=== PATIENT | female | born 1965 | race Caucasian/White ===

== ENCOUNTER 2016-10-26 23:35 | Emergency (ER) | payer OTHER ==
[~2016-10-26] VITALS: Ht 167.6 cm; Wt 68.0 kg
[~2016-10-26 23:35] MED LIST: ALBU0.086 INH; CEPH500C3 PO; FAMO20 PO; MEDR4PAK3 PO; PRED50 PO
[2016-10-26 23:37] VITALS: BP 173/105; PULSE 82; RESP 18; TEMP 98.5; O2SAT 98
--- NOTE | 2016-10-26 23:54 | PD ---
HPI Chief Complaint: Pain: Acute or Chronic Time Seen by Provider: 23:50 Travel History International Travel<30 days: No Contact w/Intl Traveler<30days: No Traveled to known affect area: No History of Present Illness HPI 51-year-old white female right-hand dominant presents emergency department for evaluation of a fall. She states that she had tripped and fell forward onto her hands and face this afternoon sometime after 2 PM. She is complaining of pain in both hands, left ankle and her chin. She denies syncope. No dental injury. No malocclusion. No syncope. No neck or back pain. She states the pain is moderate. Worse with movement. Some relief with elevation. Up-to- date with immunizations. PFS Past Medical History Narrative Medical aSTHMA Asthma: Yes Blood Disorders: No Heart Rhythm Problems: No Cancer: No Cardiovascular Problems: No High Cholesterol: No Chemotherapy: No Chest Pain: No Congestive Heart Failure: No COPD: No Diabetes: No Diminished Hearing: No Endocrine: No (DENIES) Gastrointestinal Disorders: Yes (HERNIA) Genitourinary: No Hypertension: No Immune Disorder: No Musculoskeletal: No Neurologic: No Psychiatric: No Reproductive: No Respiratory: Yes (ASTHMA) Radiation Therapy: No Sleep Apnea: No Thyroid Disease: No Tetanus Vaccination: < 5 Years : 0 Past Surgical History Narrative Surgical Hysterectomy Gynecologic Surgery: Yes (FIBROID MASS REMOVED) Hysterectomy: Yes Other Surgery: Yes (CYST REMOVED FROM R. WRIST) Social History Alcohol Use: No Tobacco Use: No Substance Use: No Allergies-Medications (Allergen,Severity, Reaction): Coded Allergies: Dilaudid (Verified Allergy, Unknown, 10/26/16) Reported Meds & Prescriptions Reported Meds & Active Scripts Active Diclofenac Sodium DR (Diclofenac Sodium) 50 Mg Tabdr 50 Mg PO TID Review of Systems Except as stated in HPI: all other systems reviewed are Neg Physical Exam Narrative GENERAL: Well-developed, well-nourished in no apparent distress. Nontoxic appearing. HEAD: Normocephalic, small soft tissue contusion to the chin. No bony step off.. EYES: Pupils equal round and reactive. Extraocular motions intact. No scleral icterus. No injection or drainage. ENT: Nose clear. Throat without erythema, tonsillar hypertrophy or exudate. Uvula midline. Airway patent. NECK: Trachea midline. Supple, nontender, moves head freely. No central bony tenderness or spasm. CARDIOVASCULAR: Regular rate and rhythm without murmurs, gallops, or rubs. RESPIRATORY: Clear to auscultation. Breath sounds equal bilaterally. No wheezes , rales, or rhonchi. GASTROINTESTINAL: Abdomen soft, non-tender, nondistended. No hepato-splenomegaly , or palpable masses. No guarding. EXTREMITIES: Examination of the right upper extremity reveals pain along the third, fourth, fifth metacarpals. Mild soft tissue tenderness in the fingers. The skin is intact. No pain in the wrist, elbow or shoulder. The left upper extremity reveals pain across the fingers as well as the second and third metacarpals. No pain in the wrist, elbow or shoulder. Skin is intact. Neurovascular intact. Lower extremity on the right is unremarkable. The left reveals pain in the ankle with mild swelling. No significant medial lateral malleolus tenderness. She has anterior talofibular ligament pain. No ecchymosis. The skin is intact. No pain in the Achilles or heel. No pain of the foot. Intact dorsalis pedis pulses bilaterally BACK: Nontender without deformity. No flank tenderness. NEUROLOGICAL: Awake, alert and oriented x 3 .Cranial nerves grossly intact. Motor and sensory grossly within normal limits. Normal speech. Data Data Last Documented VS Vital Signs Date Time Temp Pulse Resp B/P Pulse Ox O2 Delivery O2 Flow Rate FiO2 10/26/16 23:37 98.5 82 18 173/105 98 Orders Ankle, Complete ([id number]) (10/26/16 23:49) Hand, Complete (Moe8avv) (10/26/16 23:49) Hand, Complete ([id number]) (10/26/16 23:49) Ibuprofen (Motrin) (10/27/16 01:15) Acetamin-Hydrocod 325-5 Mg ([place] 5-325 (10/27/16 01:15) MDM Medical Decision Making Medical Screen Exam Complete: Yes Emergency Medical Condition: Yes Medical Record Reviewed: Yes Interpretation(s) Right hand: Negative for acute bony injury. Left hand: Negative for acute bony injury. Left ankle: Negative for acute bony injury. Differential Diagnosis MDM: High Differential diagnoses: Fracture, sprain, strain, dislocation, contusion, neurovascular injury Narrative Course X-rays of the left hand, right hand, and left ankle are negative for bony injury. Patient given one Lortab 5 a grams by mouth and Motrin 800 mg by mouth. Addi wrap. This is bilateral hand contusions, ankle sprain Diagnosis Primary Impression: bilateral hand contusions Additional Impression: Left ankle sprain Qualified Code: S93.422A - Sprain of deltoid ligament of left ankle, initial encounter Patient Instructions: General Instructions Departure Forms: Tests/Procedures, Work Release Special Instructions: No work 3 days. Additional Instructions: Rest. Elevation. Ice packs for the next 3 days. Addi wrap. Medications as directed Follow-up with an orthopedist or your doctor in one week. Return to the ER if any problems Med/Other Pt SpecificInfo: Prescription(s) given Scripts Diclofenac Sodium DR 50 Mg Tabdr50 Mg PO TID #30 TAB Prov:Sarthak Honeycutt MD 10/27/16 Disposition: 01 DISCHARGE HOME Condition: Stable Juan Kumar Oct 26, 2016 23:54
--- NOTE | 2016-10-27 00:33 | RADRPT ---
EXAM DATE/TIME: 10/27/2016 00:13 [facility] COMPARISON: No previous studies available for comparison. INDICATIONS : Pt tripped and fell tonight. Swelling and pain to bilateral hands and left ankle. MEDICAL HISTORY : None. SURGICAL HISTORY : None. ENCOUNTER: Initial ACUITY: 1 day PAIN SCORE: 8/10 LOCATION: Left ankle FINDINGS: Three view exam was performed of the left ankle. The bony structures are in normal alignment. No ev idence of fracture, dislocation, or soft tissue swelling. The ankle mortise is intact. No radiopaqu e foreign bodies are seen. Bony mineralization is normal. CONCLUSION: No acute disease. Edgar Pollard MD on October 27, 2016 at 0:32 Board Certified Radiologist. This report was verified electronically.
--- NOTE | 2016-10-27 00:34 | RADRPT ---
EXAM DATE/TIME: 10/27/2016 00:15 [facility] COMPARISON: HAND LEFT COMPLETE ([id number]), September 30, 2013, 9:21. INDICATIONS : Pt tripped and fell tonight. Swelling and pain to bilateral hands and left ankle. MEDICAL HISTORY : None. SURGICAL HISTORY : None. ENCOUNTER: Initial ACUITY: 1 day PAIN SCORE: 8/10 LOCATION: Left hand FINDINGS: There is osteoarthritis greatest at the fifth DIP joint. No fracture or dislocation. Normal bone dens ity. CONCLUSION: No acute disease. Edgar Pollard MD on October 27, 2016 at 0:32 Board Certified Radiologist. This report was verified electronically.
--- NOTE | 2016-10-27 00:35 | RADRPT ---
EXAM DATE/TIME: 10/27/2016 00:16 [facility] COMPARISON: HAND LEFT COMPLETE ([id number]), October 27, 2016, 0:15. INDICATIONS : Pt tripped and fell tonight. Swelling and pain to bilateral hands and left ankle. MEDICAL HISTORY : None. SURGICAL HISTORY : None. ENCOUNTER: Initial ACUITY: 1 day PAIN SCORE: 8/10 LOCATION: Right hand FINDINGS: There is mild osteoarthritis and normal bone density. No fracture or dislocation. CONCLUSION: No acute disease. Edgar Pollard MD on October 27, 2016 at 0:33 Board Certified Radiologist. This report was verified electronically.
[2016-10-27] MEDS ORDERED: ACETAMINOPHEN/HYDROcodone 325 MG/5 MG TAB PO ONE (01:15)
[2016-10-27] MEDS ORDERED: DICL50TA3 PO (01:15)
[2016-10-27] MEDS ORDERED: IBUPROFEN 800 MG TAB PO ONE (01:15)
[2016-12-17] MEDS ORDERED: RANI150C PO (10:18)
[2016-12-17] MEDS ORDERED: VENTAER INH (10:21)
[2017-01-22] MEDS ORDERED: IBUP800T23 PO (08:54)
[2017-01-22] MEDS ORDERED: RANI150T PO (08:54)
[2017-01-22] MEDS ORDERED: HYDR12.56 PO (08:54)
[2017-01-22] MEDS ORDERED: NYST15T TOPICAL (08:55)
== END 2016-10-27 01:59 | disposition home or self-care (01) ==
LOC: NEPB 23:47
DX: S93.422A Sprain of deltoid ligament of left ankle, initial encounter (principal); S60.222A Contusion of left hand, initial encounter; S60.221A Contusion of right hand, initial encounter; S00.83XA Contusion of other part of head, initial encounter; W01.0XXA Fall on same level from slipping, tripping and stumbling without subsequent striking against object, initial encounter
CPT/HCPCS: 73130; 73610; 99283

== ENCOUNTER 2016-11-04 17:43 | Emergency (ER) | payer OTHER ==
[~2016-11-04 17:43] MED LIST changes: -ALBU0.086 INH; -CEPH500C3 PO; +DICL50TA3 PO; -FAMO20 PO; -MEDR4PAK3 PO; -PRED50 PO
[2016-11-04 17:50] VITALS: BP 138/72; PULSE 80; RESP 18; TEMP 98.6; O2SAT 97
--- NOTE | 2016-11-04 17:54 | PD ---
HPI Chief Complaint: Abdominal Pain Time Seen by Provider: 17:53 Travel History International Travel<30 days: No Contact w/Intl Traveler<30days: No Traveled to known affect area: No History of Present Illness HPI 51-year-old female came to the emergency room with history of left lower quadrant abdominal pain that started last night. Patient says that the pain has progressively worsened. She is nauseous today with no vomiting though. She called 911 and was brought in by EMS. No history of fever or chills. Patient has history of diverticulitis in the past. She describes the pain to be sharp and localized to the left lower quadrant. It's not radiating. Movement or pushing on it makes the pain worse. PFSH Past Medical History Narrative Medical List of her past medical history as reviewed from the nursing note. Asthma: Yes Blood Disorders: No Heart Rhythm Problems: No Cancer: No Cardiovascular Problems: No High Cholesterol: No Chemotherapy: No Chest Pain: No Congestive Heart Failure: No COPD: No Diabetes: No Diminished Hearing: No Gastrointestinal Disorders: Yes (HERNIA) Genitourinary: No Immune Disorder: No Musculoskeletal: No Neurologic: No Psychiatric: No Reproductive: No Respiratory: Yes (ASTHMA) Radiation Therapy: No Sleep Apnea: No Thyroid Disease: No ?: Not : 0 Past Surgical History Gynecologic Surgery: Yes (FIBROID MASS REMOVED) Hysterectomy: Yes Other Surgery: Yes (CYST REMOVED FROM R. WRIST) Social History Alcohol Use: No Tobacco Use: No Substance Use: No Allergies-Medications (Allergen,Severity, Reaction): Coded Allergies: Dilaudid (Verified Allergy, Unknown, 11/04/16) Comments List of her allergies reviewed from the nursing note. Reported Meds & Prescriptions Reported Meds & Active Scripts Active Flagyl (Metronidazole) 250 Mg Tab 250 Mg PO TID 10 Days Ciprofloxacin (Ciprofloxacin HCl) 500 Mg Tab 500 Mg PO BID 10 Days Narrative Medication List of her home medications reviewed from the nursing note. Review of Systems Except as stated in HPI: all other systems reviewed are Neg Physical Exam Narrative GENERAL: Awake, alert, obese, moderate distress SKIN: Warm and dry. HEAD: Atraumatic. Normocephalic. EYES: Pupils equal and round. No scleral icterus. No injection or drainage. ENT: No nasal bleeding or discharge. Mucous membranes pink and moist. NECK: Trachea midline. No JVD. CARDIOVASCULAR: Regular rate and rhythm. No murmur appreciated. RESPIRATORY: No accessory muscle use. Clear to auscultation. Breath sounds equal bilaterally. GASTROINTESTINAL: Left lower quadrant tenderness and guarding, decreased bowel sounds. Hepatic and splenic margins not palpable. MUSCULOSKELETAL: No obvious deformities. No clubbing. No cyanosis. No edema. NEUROLOGICAL: Awake and alert. No obvious cranial nerve deficits. Motor grossly within normal limits. Normal speech. PSYCHIATRIC: Appropriate mood and affect; insight and judgment normal. Data Data Last Documented VS Vital Signs Date Time Temp Pulse Resp B/P Pulse Ox O2 Delivery O2 Flow Rate FiO2 11/04/16 20:46 84 18 128/72 99 Room Air 11/04/16 17:50 98.6 Orders Complete Blood Count With Diff (11/04/16 18:01) Comprehensive Metabolic Panel (11/04/16 18:01) Lipase (11/04/16 18:01) Urinalysis - C+S If Indicated (11/04/16 18:01) Ct Abd/Pel W/O Iv Contrast (11/04/16 18:01) Iv Access Insert/Monitor (11/04/16 18:01) Ecg Monitoring (11/04/16 18:01) Oximetry (11/04/16 18:01) Morphine Inj (Morphine Inj) (11/04/16 18:15) Ondansetron Inj (Zofran Inj) (11/04/16 18:15) Sodium Chlor 0.9% 1000 Ml Inj (Ns 1000 M (11/04/16 18:01) Sodium Chloride 0.9% Flush (Ns Flush) (11/04/16 18:15) Blood Culture (11/04/16 18:45) Ciprofloxacin 400 Mg Premix (Cipro 400 M (11/04/16 18:45) Metronidazole 500 Mg Inj (Flagyl 500 Mg (11/04/16 18:45) Labs Laboratory Tests Test 11/04/16 11/04/16 18:13 19:11 White Blood Count 9.8 TH/MM3 Red Blood Count 4.43 MIL/MM3 Hemoglobin 13.6 GM/DL Hematocrit 40.1 % Mean Corpuscular Volume 90.6 FL Mean Corpuscular Hemoglobin 30.7 PG Mean Corpuscular Hemoglobin 33.8 % Concent Red Cell Distribution Width 13.0 % Platelet Count 234 TH/MM3 Mean Platelet Volume 8.3 FL Neutrophils (%) (Auto) 73.8 % Lymphocytes (%) (Auto) 18.4 % Monocytes (%) (Auto) 5.6 % Eosinophils (%) (Auto) 1.5 % Basophils (%) (Auto) 0.7 % Neutrophils # (Auto) 7.2 TH/MM3 Lymphocytes # (Auto) 1.8 TH/MM3 Monocytes # (Auto) 0.5 TH/MM3 Eosinophils # (Auto) 0.1 TH/MM3 Basophils # (Auto) 0.1 TH/MM3 CBC Comment DIFF FINAL Differential Comment Sodium Level 138 MEQ/L Potassium Level 3.8 MEQ/L Chloride Level 102 MEQ/L Carbon Dioxide Level 25.0 MEQ/L Anion Gap 11 MEQ/L Blood Urea Nitrogen 10 MG/DL Creatinine 0.77 MG/DL Estimat Glomerular Filtration 79 ML/MIN Rate Random Glucose 97 MG/DL Calcium Level 9.4 MG/DL Total Bilirubin 0.9 MG/DL Aspartate Amino Transf 14 U/L (AST/SGOT) Alanine Aminotransferase 28 U/L (ALT/SGPT) Alkaline Phosphatase 89 U/L Total Protein 8.3 GM/DL Albumin 4.1 GM/DL Lipase 87 U/L Urine Color YELLOW Urine Turbidity CLEAR Urine pH 8.0 Urine Specific [place] 1.011 Urine Protein NEG mg/dL Urine Glucose (UA) NEG mg/dL Urine Ketones 10 mg/dL Urine Occult Blood NEG Urine Nitrite NEG Urine Bilirubin NEG Urine Urobilinogen LESS THAN 2.0 MG/DL Urine Leukocyte Esterase NEG Urine WBC 1 /hpf Microscopic Urinalysis Comment CULT NOT INDICATED MDM Medical Decision Making Medical Screen Exam Complete: Yes Emergency Medical Condition: Yes Medical Record Reviewed: Yes Differential Diagnosis Acute diverticulitis, diverticular abscess Narrative Course 6:18 PM awaiting for the blood test results and the CAT scan to be done and resulted. I've medicated her for pain and nausea. Patient is getting IV fluid bolus. 7:12 PM CAT scan result is back and shows diverticulitis without abscess. Blood test results are back and looks to be within normal limit. Patient is getting a dose of IV antibiotic and will be discharged home. Procedures EKG Prior to Arrival: No Diagnosis Primary Impression: Acute diverticulitis Referrals: Primary Care Physician 2 days Additional Instructions: Please return to the ER if the condition worsens or any other new concerns. Otherwise follow-up with your primary care. Take the medications as per the prescription direction. Clear liquid diet for next 48 hours. Med/Other Pt SpecificInfo: Prescription(s) given Scripts Metronidazole (Flagyl)250 Mg [id number] Mg PO TID 10 Days Ref 0 Prov:Eliana Naik MD 11/04/16 Ciprofloxacin 500 Mg [id number] Mg PO BID 10 Days Ref 0 Prov:Eliana Naik MD 11/04/16 Disposition: 01 DISCHARGE HOME Condition: Stable Eliana Naik MD Nov 04, 2016 17:54
[2016-11-04] MEDS ORDERED: SODIUM CHLOR 0.9% 1000 ML INJ 1,000 ML IV SCH (18:01)
[2016-11-04] MEDS ORDERED: ONDANSETRON HCL 4 MG/2 ML VIAL IVP ONE (18:15)
[2016-11-04] MEDS ORDERED: MORPHINE SULFATE 4 MG/ML INJ IV PUSH ONE (18:15)
[2016-11-04] MEDS ORDERED: SODIUM CHLORIDE 0.9% FLUSH 5 ML FLUSH IVF PRN (18:15)
[2016-11-04 18:16] VITALS: O2SAT 97
[2016-11-04 18:35] LABS: AUTOMATED NEUTROPHIL # 7.2 TH/MM3 (1.8-7.7); BASOPHIL # 0.1 TH/MM3 (0-0.2); BASOPHIL % 0.7 % (0.0-2.0); EOSINOPHIL # 0.1 TH/MM3 (0-0.4); EOSINOPHIL % 1.5 % (0.0-4.0); HEMATOCRIT 40.1 % (35.0-46.0); LYMPH % 18.4 % (9.0-44.0); LYMPHOCYTE # 1.8 TH/MM3 (1.0-4.8); MEAN CELL VOLUME 90.6 FL (80.0-100.0); MEAN CORPUSCULAR HEMOGLOBIN 30.7 PG (27.0-34.0); MEAN CORPUSCULAR HGB CONC 33.8 % (32.0-36.0); MONO % 5.6 % (0.0-8.0); NEUT % 73.8 % (16.0-70.0); PLATELET COUNT 234 TH/MM3 (150-450); RED BLOOD COUNT 4.43 MIL/MM3 (4.00-5.30); WHITE BLOOD COUNT 9.8 TH/MM3 (4.0-11.0)
--- NOTE | 2016-11-04 18:42 | RADRPT ---
EXAM DATE/TIME: 11/04/2016 18:15 [facility] COMPARISON: No previous studies available for comparison. INDICATIONS : Lower left abdominal pain. ORAL CONTRAST: No oral contrast ingested. RADIATION DOSE: 12.64 CTDIvol (mGy) MEDICAL HISTORY : Hypertension. SURGICAL HISTORY : Hysterectomy. ENCOUNTER: Initial ACUITY: 2 days PAIN SCALE: 6/10 LOCATION: Left lower quadrant TECHNIQUE: Volumetric scanning of the abdomen and pelvis was performed. Using automated exposure control and ad justment of the mA and/or kV according to patient size, radiation dose was kept as low as reasonably achievable to obtain optimal diagnostic quality images. FINDINGS: There is mural thickening in the proximal sigmoid colon associated with diverticula and perisigmoid f at stranding characteristic of mild diverticulitis. There is no abscess, obstruction, free fluid or f ree air. Appendix is normal. Lung bases are clear. No acute findings in the liver, spleen, adrenals, kidneys or pancreas. No calci fied gallstones or biliary ductal dilatation. No acute bony abnormality. CONCLUSION: 1. Proximal sigmoid diverticulitis without abscess, obstruction, free fluid or free air. Juan Ford MD on November 04, 2016 at 18:36 Board Certified Radiologist. This report was verified electronically.
[2016-11-04 18:44] LABS: HEMO FLAGS DIFF FINAL
[2016-11-04] MEDS ORDERED: CIPROFLOXACIN 400 MG PREMIX 200 ML IV ONE (18:45)
[2016-11-04] MEDS ORDERED: metroNIDAZOLE 500 MG INJ 100 ML IV ONE (18:45)
[2016-11-04 18:56] LABS: ANION GAP 11 MEQ/L (5-15); AST (GOT) 14 U/L (15-37); BLOOD UREA NITROGEN 10 MG/DL (7-18); CHLORIDE 102 MEQ/L (98-107); GLOMERULAR FILTRATION RATE 79 ML/MIN (>89); POTASSIUM 3.8 MEQ/L (3.5-5.1); SODIUM (NA) 138 MEQ/L (136-145)
[2016-11-04 19:00] LABS: ALKALINE PHOSPHATASE 89 U/L (45-117); ALT (GPT) 28 U/L (10-53); TOTAL BILIRUBIN ADULT 0.9 MG/DL (0.2-1.0)
[2016-11-04] MEDS ORDERED: CIPR500T2 PO (19:13)
[2016-11-04] MEDS ORDERED: METR250 PO (19:13)
[2016-11-04 20:46] VITALS: BP 128/72; PULSE 84; RESP 18; O2SAT 99
[2016-11-04 21:10] LABS: BLOOD, URINE NEG (NEG); GLUCOSE,URINE NEG (NEG); KETONE, URINE 10 mg/dL (NEG); NITRITE,URINE NEG (NEG); URINE COLOR YELLOW (YELLW/STRAW)
[2016-11-04 21:11] LABS: COMMENT (UR) CULT NOT INDICATED; CULTURE IF INDICATED CULT NOT INDICATED
[2016-12-17] MEDS ORDERED: RANI150C PO (10:18)
[2016-12-17] MEDS ORDERED: VENTAER INH (10:21)
[2017-01-22] MEDS ORDERED: IBUP800T23 PO (08:54)
[2017-01-22] MEDS ORDERED: HYDR12.56 PO (08:54)
[2017-01-22] MEDS ORDERED: RANI150T PO (08:54)
[2017-01-22] MEDS ORDERED: NYST15T TOPICAL (08:55)
== END 2016-11-04 23:00 | disposition home or self-care (01) ==
LOC: NEPE 17:43 → NEDAMB 23:00
DX: K57.92 Diverticulitis of intestine, part unspecified, without perforation or abscess without bleeding (principal); R11.0 Nausea; J45.909 Unspecified asthma, uncomplicated
CPT/HCPCS: 74176; 80053; 81001; 83690; 85025; 86403; 87040; 87205; 96361; 96374; 96375; 99284; J0744; J2270; J2405; J7030

== ENCOUNTER 2016-11-20 23:10 | Emergency (ER) | payer OTHER ==
[~2016-11-20] VITALS: Ht 162.6 cm; Wt 68.0 kg
[~2016-11-20 23:10] MED LIST changes: +CIPR500T2 PO; -DICL50TA3 PO; +METR250 PO
[2016-11-20 23:11] VITALS: BP 146/100; PULSE 92; RESP 18; TEMP 97.9; O2SAT 97
[2016-11-20 23:26] VITALS: BP 144/95
[2016-11-20] MEDS ORDERED: ALBU0.08 NEB (23:43)
[2016-11-20] MEDS ORDERED: DOXY100C PO (23:43)
[2016-11-20] MEDS ORDERED: PRED-503 PO (23:43)
[2016-11-20] MEDS ORDERED: DOXYCYCLINE HYCLATE 100 MG CAP PO ONE (23:45)
[2016-11-20] MEDS ORDERED: predniSONE 20 MG TAB PO ONE (23:45)
--- NOTE | 2016-11-20 23:49 | PD ---
HPI Chief Complaint: Cold / Flu Symptoms Time Seen by Provider: 23:44 Travel History International Travel<30 days: No Contact w/Intl Traveler<30days: No Traveled to known affect area: No History of Present Illness HPI 51-year-old white female presents with a four-day history of cough and congestion. She states that she coughs so hard she vomits. She has pleuritic chest wall pain. Positive subjective fever, productive sputum, posttussive emesis and general malaise. She denies any nausea or vomiting otherwise. No abdominal pain or diarrhea. No dysuria or frequency. PFSH Past Medical History Asthma: Yes Blood Disorders: No Heart Rhythm Problems: No Cancer: No Cardiovascular Problems: No High Cholesterol: No Chemotherapy: No Chest Pain: No Congestive Heart Failure: No COPD: No Diabetes: No Diminished Hearing: No Gastrointestinal Disorders: Yes (HERNIA) Genitourinary: No Immune Disorder: No Musculoskeletal: No Neurologic: No Psychiatric: No Reproductive: No Respiratory: Yes (ASTHMA) Radiation Therapy: No Sleep Apnea: No Thyroid Disease: No ?: Not : 0 Past Surgical History Gynecologic Surgery: Yes (FIBROID MASS REMOVED) Hysterectomy: Yes Other Surgery: Yes (CYST REMOVED FROM R. WRIST) Social History Alcohol Use: No Tobacco Use: No Substance Use: No Allergies-Medications (Allergen,Severity, Reaction): Coded Allergies: Dilaudid (Verified Allergy, Unknown, 11/20/16) Reported Meds & Prescriptions Reported Meds & Active Scripts Active Albuterol Neb (Albuterol Sulfate) 2.5 Mg/3 Ml Neb 2.5 Mg NEB Q4HR NEB While awake Deltasone (Prednisone) 20 Mg Tab 20 Mg PO BID Doxycycline Hyclate 100 Mg Cap 100 Mg PO BID Flagyl (Metronidazole) 250 Mg Tab 250 Mg PO TID 10 Days Ciprofloxacin (Ciprofloxacin HCl) 500 Mg Tab 500 Mg PO BID 10 Days Review of Systems Except as stated in HPI: all other systems reviewed are Neg Physical Exam Narrative GENERAL: Well-developed, well-nourished in no acute distress. Nontoxic appearing. HEAD: Normocephalic, atraumatic. EYES: Pupils equal round and reactive. Extraocular motions intact. No scleral icterus. No injection or drainage. ENT: TMs clear without erythema. The external auditory canals clear. Nose: clear . Posterior pharynx is pink and moist. No tonsillar edema or exudate. Uvula midline. Airway patent. NECK: Trachea midline.Supple, nontender, moves head freely. No central bony tenderness or spasm. CARDIOVASCULAR: Regular rate and rhythm without murmurs, gallops, or rubs. RESPIRATORY: Scattered rhonchi with a few fine extremely wheeze. No Rales. GASTROINTESTINAL: Abdomen soft, non-tender, nondistended. No hepato-splenomegaly , or palpable masses. No guarding. EXTREMITIES: No clubbing, cyanosis, or edema. No joint tenderness, effusion, or edema noted. BACK: Nontender without deformity or crepitance. No flank tenderness. Data Data Last Documented VS Vital Signs Date Time Temp Pulse Resp B/P Pulse Ox O2 Delivery O2 Flow Rate FiO2 11/20/16 23:26 144/95 11/20/16 23:11 97.9 92 18 97 Room Air Orders Prednisone (Deltasone) (11/20/16 23:45) Doxycycline (Vibramycin) (11/20/16 23:45) MDM Medical Decision Making Medical Screen Exam Complete: Yes Emergency Medical Condition: Yes Medical Record Reviewed: Yes Differential Diagnosis MDM: High Differential diagnoses: Pneumonia, bronchitis, URI, asthma, RAD, legionnaire's disease, SARS, ARDS, influenza, bronchiolitis, RSV,PE,CHF Narrative Course Patient's given 40 mg of prednisone by mouth, doxycycline 100 mg by mouth. This is asthmatic bronchitis Diagnosis Primary Impression: Asthmatic bronchitis Qualified Code: J45.20 - Asthmatic bronchitis, mild intermittent, uncomplicated Patient Instructions: General Instructions Additional Instructions: Rest. Increase fluids. Tylenol and Advil. Robitussin-DM. Doxycycline, prednisone, and albuterol. Followup with your DrArias in one week. Return to the ER for any problems. Med/Other Pt SpecificInfo: Prescription(s) given Scripts Albuterol Neb 2.5 Mg/3 Ml Neb2.5 Mg NEB Q4HR NEB #60 NEBULE While awake Prov:Forest Friedman MD 11/20/16 Prednisone (Deltasone)20 Mg Tab20 Mg PO BID #10 TAB Prov:Forest Friedman MD 11/20/16 Doxycycline Hyclate 100 Mg [id number] Mg PO BID #14 CAP Prov:Forest Friedman MD 11/20/16 Disposition: 01 DISCHARGE HOME Condition: Stable Juan Kumar Nov 20, 2016 23:49
[2016-12-17] MEDS ORDERED: RANI150C PO (10:18)
[2016-12-17] MEDS ORDERED: VENTAER INH (10:21)
[2017-01-22] MEDS ORDERED: IBUP800T23 PO (08:54)
[2017-01-22] MEDS ORDERED: HYDR12.56 PO (08:54)
[2017-01-22] MEDS ORDERED: RANI150T PO (08:54)
[2017-01-22] MEDS ORDERED: NYST15T TOPICAL (08:55)
== END 2016-11-21 00:07 | disposition home or self-care (01) ==
LOC: NEPB 23:10
DX: J45.20 Mild intermittent asthma, uncomplicated (principal)
CPT/HCPCS: 99283; J7512

== ENCOUNTER 2017-01-16 11:02 | Emergency (ER) | payer OTHER ==
[~2017-01-16] VITALS: Ht 162.6 cm; Wt 66.0 kg
[~2017-01-16 11:02] MED LIST changes: -HYDR12.56 PO; -IBUP800T23 PO; -NYST15T TOPICAL; -RANI150T PO
[2017-01-16 11:04] VITALS: BP 161/91; PULSE 89; RESP 15; TEMP 97.9; O2SAT 98
--- NOTE | 2017-01-16 11:11 | PD ---
Physical Exam Time Seen by Provider: 11:08 Narrative 52 yo F w/ c/o left foot injury one week ago and chronic low pain [id number]. Denies new or recent injury. Patient stable. Patient see in triage. Awaiting bed placement. Data Data Last Documented VS Vital Signs Date Time Temp Pulse Resp B/P Pulse Ox O2 Delivery O2 Flow Rate FiO2 01/16/17 11:04 97.9 89 15 161/91 98 MDM Supervised Visit with DWIGHT: Kitty Conklin Jan 16, 2017 11:11
--- NOTE | 2017-01-16 11:25 | PD ---
HPI . chronic back pain and foot pain for 1 week Chief Complaint: Pain: Acute or Chronic Time Seen by Provider: 11:20 Travel History International Travel<30 days: No Contact w/Intl Traveler<30days: No Traveled to known affect area: No History of Present Illness HPI 52 yr old female well known to me from the community clinic here with c/o left foot pain for over 1 week. She reports dropping a box on her foot about 1 week ago and has had pain ever since. She is ambulatory. She reports pain in the top of her foot. She also reports some pain in her back that has been ongoing for quite some time. She denies any recent injury. She tells me she has an appointment at the community clinic but not until next week and she went there and was told to come to the ED because there were no appointments. No bowel or bladder dysfunction. No saddle anesthesia. PFSH Past Medical History Asthma: Yes Blood Disorders: No Heart Rhythm Problems: No Cancer: No Cardiovascular Problems: No High Cholesterol: No Chemotherapy: No Chest Pain: No Congestive Heart Failure: No COPD: No Diabetes: No Diminished Hearing: No Gastrointestinal Disorders: Yes (HERNIA) Genitourinary: No Immune Disorder: No Musculoskeletal: No Neurologic: No Psychiatric: No Reproductive: No Respiratory: Yes (ASTHMA) Radiation Therapy: No Sleep Apnea: No Thyroid Disease: No ?: Not : 0 Past Surgical History Gynecologic Surgery: Yes (FIBROID MASS REMOVED) Hysterectomy: Yes Other Surgery: Yes (CYST REMOVED FROM R. WRIST) Social History Alcohol Use: No Tobacco Use: No Substance Use: No Allergies-Medications (Allergen,Severity, Reaction): Coded Allergies: Dilaudid (Verified Allergy, Unknown, 01/16/17) Reported Meds & Prescriptions Reported Meds & Active Scripts Active Ventolin Hfa 18 GM Inh (Albuterol Sulfate) 90 Mcg/Act Aer 1 Puff INH Q4H PRN Ranitidine (Ranitidine HCl) 150 Mg Cap 150 Mg PO DAILY Albuterol Neb (Albuterol Sulfate) 2.5 Mg/3 Ml Neb 2.5 Mg NEB Q4HR NEB While awake Review of Systems General / Constitutional: No: Fever Eyes: No: Visual changes HENT: No: Headaches Cardiovascular: No: Chest Pain or Discomfort Respiratory: No: Shortness of Breath Gastrointestinal: No: Abdominal Pain Genitourinary: No: Dysuria Musculoskeletal: Positive: Pain (left foot and back ) Skin: No Rash Neurologic: No: Weakness Psychiatric: No: Depression Endocrine: No: Polydipsia Hematologic/Lymphatic: No: Easy Bruising Physical Exam Narrative GENERAL: AAO x 3, no acute distress, Well-nourished, well-developed patient. SKIN: Warm and dry. No visible rashes or bruising. HEAD: Normocephalic and atraumatic. EYES: No scleral icterus. No injection or drainage. EOM intact, PERRLA ENT: No nasal drainage noted. Mucous membranes pink. Airway patent. NECK: Supple, trachea midline. No JVD. CARDIOVASCULAR: Regular rate and rhythm without murmurs, gallops, or rubs. RESPIRATORY: Breath sounds equal bilaterally. No accessory muscle use. No rhonchi or rales. GASTROINTESTINAL: Abdomen soft, non-tender, nondistended. EXTREMITIES: No cyanosis or edema. Feet normal inspection.Pulses normal. no ecchymosis, or deformity. Toes move. Tenderness over the navicular and cuneiform bones. BACK: Nontender without obvious deformity. No CVA tenderness. No spinal tenderness. mild paraspinal tenderness. PSYCH: AAO x 3, normal affect. Data Data Last Documented VS Vital Signs Date Time Temp Pulse Resp B/P Pulse Ox O2 Delivery O2 Flow Rate FiO2 01/16/17 11:04 97.9 89 15 161/91 98 MDM Medical Decision Making Medical Screen Exam Complete: Yes Emergency Medical Condition: No Medical Record Reviewed: Yes Differential Diagnosis acute on chronic back pain, foot pain, foot fracture Narrative Course 52 yr old female well known to me from the community clinic here with c/o left foot pain for over 1 week. She reports dropping a box on her foot about 1 week ago and has had pain ever since. She is ambulatory. She reports pain in the top of her foot. She also reports some pain in her back that has been ongoing for quite some time. She denies any recent injury. She tells me she has an appointment at the community health clinic but not until next week and she went there and was told to come to the ED because there were no appointments. No bowel or bladder dysfunction. No saddle anesthesia. I personally called the community health clinic and they will see the patient now. She is being escorted there by a financial counselor for treatment. I discussed with patient. A medical screening exam was performed: At the time of evaluation the presenting medical condition was determined not to be of an emergent nature. The patient was given the option of receiving additional care, but declined. Patient was given options for additional community resources from which to obtain care. The Patient Has Been advised to seek medical attention for their presenting complaint. The patient has been advised to return to the ER at any time if an emergent condition develops. Diagnosis Primary Impression: Encounter for medical screening examination Condition: Stable Sarah Cuellar Jan 16, 2017 11:24
[2017-01-16] MEDS ORDERED: IBUP800T23 PO (12:14)
[2017-01-22] MEDS ORDERED: HYDR12.56 PO (08:54)
[2017-01-22] MEDS ORDERED: RANI150T PO (08:54)
[2017-01-22] MEDS ORDERED: IBUP800T23 PO (08:54)
[2017-01-22] MEDS ORDERED: NYST15T TOPICAL (08:55)
== END 2017-01-16 11:49 | disposition left against medical advice (07) ==
LOC: NEPK 11:02
DX: M79.672 Pain in left foot (principal)
CPT/HCPCS: 99281

== ENCOUNTER → 2017-01-16 | Outpatient (CLI) | payer OTHER ==
[~2017-01-16] MED LIST changes: +ALBU0.08 NEB; -CIPR500T2 PO; +HYDR12.56 PO; +IBUP800T23 PO; -METR250 PO; +NYST15T TOPICAL; +RANI150C PO; +RANI150T PO; +VENTAER INH
--- NOTE | 2017-01-16 13:15 | RADRPT ---
EXAM DATE/TIME: 01/16/2017 12:53 [facility] COMPARISON: No previous studies available for comparison. INDICATIONS : Left foot pain, metatarsals. Box of metal beads fell on foot 1 weeks ago. MEDICAL HISTORY : None. SURGICAL HISTORY : None. ENCOUNTER: Initial ACUITY: 1 week PAIN SCORE: 10/10 LOCATION: Left foot FINDINGS: No definite fractures, or dislocations are identified. No definite lytic or sclerotic lesion is seen . There are degenerative changes within multiple joints mainly the interphalangeal joints with slight hypertrophic changes involving the second proximal phalanx chronic in nature. CONCLUSION: Chronic changes and no evidence for acute fracture. Noel Pleitez MD on January 16, 2017 at 13:12 Board Certified Radiologist. This report was verified electronically.
== END ==
LOC: HRAD 12:38
PROVIDERS: ATTEND Nurse Practitioner Family
DX: S99.922A Unspecified injury of left foot, initial encounter (principal); X58.XXXA Exposure to other specified factors, initial encounter
CPT/HCPCS: 73630

== ENCOUNTER → 2017-01-16 | Outpatient (CLI) | payer OTHER ==
[2017-01-16 11:10] LABS: AUTOMATED NEUTROPHIL # 1.9 TH/MM3 (1.8-7.7); BASOPHIL % 0.9 % (0.0-2.0); EOSINOPHIL # 0.1 TH/MM3 (0-0.4); EOSINOPHIL % 3.3 % (0.0-4.0); HEMATOCRIT 40.8 % (35.0-46.0); HEMO FLAGS DIFF FINAL; LYMPH % 33.4 % (9.0-44.0); LYMPHOCYTE # 1.2 TH/MM3 (1.0-4.8); MEAN CELL VOLUME 91.2 FL (80.0-100.0); MEAN CORPUSCULAR HEMOGLOBIN 30.1 PG (27.0-34.0); MEAN CORPUSCULAR HGB CONC 32.9 % (32.0-36.0); MONO % 8.3 % (0.0-8.0); NEUT % 54.1 % (16.0-70.0); PLATELET COUNT 214 TH/MM3 (150-450); RED BLOOD COUNT 4.47 MIL/MM3 (4.00-5.30); RED CELL DISTRIBUTION WIDTH 12.4 % (11.6-17.2); WHITE BLOOD COUNT 3.4 TH/MM3 (4.0-11.0)
[2017-01-16 11:39] LABS: ALKALINE PHOSPHATASE 77 U/L (45-117); ALT (GPT) 37 U/L (10-53); ANION GAP 9 MEQ/L (5-15); AST (GOT) 26 U/L (15-37); BICARBONATE 27.3 MEQ/L (21.0-32.0); BLOOD UREA NITROGEN 9 MG/DL (7-18); CHLORIDE 106 MEQ/L (98-107); GLOMERULAR FILTRATION RATE 98 ML/MIN (>89); GLUCOSE,FASTING 103 MG/DL (74-99); HDL CHOLESTEROL 45.4 MG/DL (40.0-60.0); LDL CHOLESTEROL 156 MG/DL (0-99); POTASSIUM 4.1 MEQ/L (3.5-5.1); SODIUM (NA) 142 MEQ/L (136-145); TOTAL BILIRUBIN ADULT 0.7 MG/DL (0.2-1.0)
== END ==
LOC: CLAB 10:37
PROVIDERS: ATTEND Family Medicine
DX: J45.909 Unspecified asthma, uncomplicated (principal); K57.92 Diverticulitis of intestine, part unspecified, without perforation or abscess without bleeding; K21.9 Gastro-esophageal reflux disease without esophagitis; M25.569 Pain in unspecified knee; E66.9 Obesity, unspecified
CPT/HCPCS: 36415; 80053; 80061; 84443; 85025

== ENCOUNTER 2017-05-21 16:51 | Observation (INO) | payer OTHER ==
[2017-05-21] VITALS (7 sets, daily range): BP systolic 131–159; BP diastolic 74–88; PULSE 81–92; RESP 18–20; TEMP 97.6–98.6; O2SAT 97–99
[~2017-05-21] VITALS: Ht 167.6 cm; Wt 68.3 kg
[~2017-05-21 16:51] MED LIST changes: +HYDR25TA5 PO; +IBUP800T23 PO; -RANI150C PO; +RANI150T PO
--- NOTE | 2017-05-21 17:43 | RADRPT ---
EXAM DATE/TIME: 05/21/2017 17:41 [facility] COMPARISON: CHEST PA & LAT, March 16, 2014, 10:28. INDICATIONS : Dizziness today. MEDICAL HISTORY : None. SURGICAL HISTORY : None. ENCOUNTER: Initial ACUITY: 1 day PAIN SCORE: 0/10 LOCATION: Bilateral chest FINDINGS: PA and lateral views of the chest demonstrate the lungs to be symmetrically aerated without evidence of mass, infiltrate or effusion. The cardiomediastinal contours are unremarkable. Osseous structure s are intact. CONCLUSION: No acute disease. Roberto Olsen Jr., MD on May 21, 2017 at 17:39 Board Certified Radiologist. This report was verified electronically.
--- NOTE | 2017-05-21 18:00 | PD ---
HPI Chief Complaint: Chest Pain Time Seen by Provider: 18:00 Travel History International Travel<30 days: No Contact w/Intl Traveler<30days: No Traveled to known affect area: No History of Present Illness HPI 52-year-old female with history of asthma and hypertension, presents to the emergency permit for evaluation of chest pain. Patient states yesterday she was having some chest pressure and episodes of dizziness where she felt like she may pass out. She thought this may be due to a new blood pressure medication she had started so she stopped taking it. She states today she ran having more chest pain with the same associated symptom. Mild nausea but no vomiting. Patient states she has no cardiac history. She has never had a heart attack but she does have familial cardiac history. Patient has no other symptoms to report. PFSH Past Medical History Asthma: Yes Blood Disorders: No Heart Rhythm Problems: No Cancer: No Cardiovascular Problems: No High Cholesterol: No Chemotherapy: No Chest Pain: No Congestive Heart Failure: No COPD: No Diabetes: No Diminished Hearing: No Gastrointestinal Disorders: Yes (HERNIA) Genitourinary: No Immune Disorder: No Musculoskeletal: No Neurologic: No Psychiatric: No Reproductive: No Respiratory: Yes (ASTHMA) Radiation Therapy: No Sleep Apnea: No Thyroid Disease: No ?: Not LMP: na : 0 Past Surgical History Gynecologic Surgery: Yes (FIBROID MASS REMOVED) Hysterectomy: Yes Other Surgery: Yes (CYST REMOVED FROM R. WRIST) Social History Alcohol Use: No Tobacco Use: No Substance Use: No Allergies-Medications (Allergen,Severity, Reaction): Coded Allergies: hydromorphone (Unverified Allergy, Unknown, 05/21/17) Reported Meds & Prescriptions Reported Meds & Active Scripts Active Ranitidine (Ranitidine HCl) 150 Mg Tab 150 Mg PO DAILY Hydrochlorothiazide 25 Mg Tab 25 Mg PO DAILY Ibuprofen 800 Mg Tab 800 Mg PO Q12HR PRN Ventolin Hfa 18 GM Inh (Albuterol Sulfate) 90 Mcg/Act Aer 1 Puff INH Q4H PRN Albuterol Neb (Albuterol Sulfate) 2.5 Mg/3 Ml Neb 2.5 Mg NEB Q4HR NEB While awake Review of Systems Except as stated in HPI: all other systems reviewed are Neg Physical Exam Narrative GENERAL: Well-nourished female patient, in no acute distress SKIN: Focused skin assessment warm/dry. HEAD: Atraumatic. Normocephalic. EYES: Pupils equal and round. No scleral icterus. No injection or drainage. ENT: No nasal bleeding or discharge. Mucous membranes pink and moist. NECK: Trachea midline. No JVD. CARDIOVASCULAR: Regular rate and rhythm. No murmur appreciated. RESPIRATORY: No accessory muscle use. Clear to auscultation. Breath sounds equal bilaterally. GASTROINTESTINAL: Abdomen soft, non-tender, nondistended. Hepatic and splenic margins not palpable. MUSCULOSKELETAL: No obvious deformities. No clubbing. No cyanosis. No edema. NEUROLOGICAL: Awake and alert. No obvious cranial nerve deficits. Motor grossly within normal limits. Normal speech. Data Data Last Documented VS Vital Signs Date Time Temp Pulse Resp B/P (MAP) Pulse Ox O2 Delivery O2 Flow Rate FiO2 05/21/17 19:08 81 18 138/84 (102) 98 Room Air Manual Cuff/Palpation 05/21/17 17:05 97.6 Orders Orders Electrocardiogram (05/21/17 17:12) Complete Blood Count With Diff (05/21/17 17:12) Basic Metabolic Panel (Bmp) (05/21/17 17:12) Ckmb (Isoenzyme) Profile (05/21/17 17:12) Troponin I (05/21/17 17:12) Iv Access Insert/Monitor (05/21/17 17:12) Ecg Monitoring (05/21/17 17:12) Oxygen Administration (05/21/17 17:12) Oximetry (05/21/17 17:12) Chest, Pa & Lat (05/21/17 17:12) Urinalysis - C+S If Indicated (05/21/17 18:12) Orthostatic Vital Signs (05/21/17 18:14) Aspirin Chew (Aspirin Chew) (05/21/17 19:15) Admit Order (Ed Use Only) (05/21/17 19:24) Activity Bed Rest With Brp (05/21/17 19:24) Vital Signs (Adult) Q4H (05/21/17 19:24) Cardiac Rhythm .As Directed (05/21/17 19:24) Notify Dr: Other .PRN (05/21/17 19:24) Notify . Parameters (05/21/17 19:24) Resp Oxygen Nasal Cannula (05/21/17 ) Diet Npo (05/22/17 Breakfast) Diet Heart Healthy (05/21/17 Dinner) Ckmb (Isoenzyme) Profile (05/21/17 20:30) Ckmb (Isoenzyme) Profile (05/21/17 23:30) Troponin I (05/21/17 20:30) Troponin I (05/21/17 23:30) Electrocardiogram (05/21/17 20:30) Electrocardiogram (05/21/17 23:30) ^ Obtain (05/21/17 19:24) Sodium Chloride 0.9% Flush (Ns Flush) (05/21/17 19:30) Sodium Chloride 0.9% Flush (Ns Flush) (05/21/17 21:00) Acetaminophen (Tylenol) (05/21/17 19:30) Ondansetron Inj (Zofran Inj) (05/21/17 19:30) Nitroglycerin Sl (Nitrostat Sl) (05/21/17 19:30) Product Responsibility Liaison / Telemetry MINH.Q8H (05/21/17 19:24) Murtaza Bilateral/Knee High IMNH.QSHIFT (05/21/17 19:24) Labs Laboratory Tests Test 05/21/17 17:28 White Blood Count 9.1 TH/MM3 Red Blood Count 4.50 MIL/MM3 Hemoglobin 13.6 GM/DL Hematocrit 41.0 % Mean Corpuscular Volume 91.2 FL Mean Corpuscular Hemoglobin 30.3 PG Mean Corpuscular Hemoglobin Concent 33.2 % Red Cell Distribution Width 12.1 % Platelet Count 230 TH/MM3 Mean Platelet Volume 8.0 FL Neutrophils (%) (Auto) 73.1 % Lymphocytes (%) (Auto) 19.2 % Monocytes (%) (Auto) 6.5 % Eosinophils (%) (Auto) 0.7 % Basophils (%) (Auto) 0.5 % Neutrophils # (Auto) 6.6 TH/MM3 Lymphocytes # (Auto) 1.7 TH/MM3 Monocytes # (Auto) 0.6 TH/MM3 Eosinophils # (Auto) 0.1 TH/MM3 Basophils # (Auto) 0.0 TH/MM3 CBC Comment DIFF FINAL Differential Comment Blood Urea Nitrogen 12 MG/DL Creatinine 0.77 MG/DL Random Glucose 237 MG/DL Calcium Level 8.6 MG/DL Sodium Level 136 MEQ/L Potassium Level 3.3 MEQ/L Chloride Level 100 MEQ/L Carbon Dioxide Level 26.0 MEQ/L Anion Gap 10 MEQ/L Estimat Glomerular Filtration Rate 79 ML/MIN Total Creatine Kinase 95 U/L Troponin I 0.02 NG/ML MDM Medical Decision Making Medical Screen Exam Complete: Yes Emergency Medical Condition: Yes Medical Record Reviewed: Yes Differential Diagnosis ACS versus chest wall pain versus pleuritic pain versus muscle spasm Narrative Course 52-year-old female presents to the emergency department for evaluation of chest pain. Patient appears without distress. Lab work has been initiated in triage. The results with no acute abnormality. Troponin is 0.02. Chest x- rays with no acute cardiopulmonary disease. Patient will be admitted to the chest pain center for aerial enzymes and further evaluation. Diagnosis Primary Impression: Chest pain Qualified Codes: R07.9 - Chest pain, unspecified Admitting Information Admitting Physician Requests: Observation Condition: Stable Sherri Reynoso May 21, 2017 18:00
[2017-05-21 18:03] LABS: AUTOMATED NEUTROPHIL # 6.6 TH/MM3 (1.8-7.7); BASOPHIL % 0.5 % (0.0-2.0); EOSINOPHIL # 0.1 TH/MM3 (0-0.4); EOSINOPHIL % 0.7 % (0.0-4.0); HEMO FLAGS DIFF FINAL; LYMPH % 19.2 % (9.0-44.0); LYMPHOCYTE # 1.7 TH/MM3 (1.0-4.8); MEAN CELL VOLUME 91.2 FL (80.0-100.0); MEAN CORPUSCULAR HEMOGLOBIN 30.3 PG (27.0-34.0); MEAN CORPUSCULAR HGB CONC 33.2 % (32.0-36.0); MONO % 6.5 % (0.0-8.0); NEUT % 73.1 % (16.0-70.0); PLATELET COUNT 230 TH/MM3 (150-450); RED CELL DISTRIBUTION WIDTH 12.1 % (11.6-17.2); WHITE BLOOD COUNT 9.1 TH/MM3 (4.0-11.0)
[2017-05-21 18:34] LABS: POTASSIUM 3.3 MEQ/L (3.5-5.1)
[2017-05-21] MEDS ORDERED: ONDANSETRON HCL 4 MG/2 ML VIAL IV PRN (19:30)
[2017-05-21] MEDS ORDERED: ACETAMINOPHEN 500 MG CPLT PO PRN (19:30)
[2017-05-21] MEDS ORDERED: SODIUM CHLORIDE 0.9% FLUSH 10 ML FLUSH IV FLUSH PRN (19:30)
[2017-05-21] MEDS: ASPIRIN 81 MG CHEW TAB CHEW SCH (20:21)
[2017-05-21 21:24] LABS: CREATINE KINASE 76 U/L (26-192)
[2017-05-21] MEDS: NITROGLYCERIN 0.4 MG SL 25 TABS/BTL SL PRN (23:49)
[2017-05-21] MEDS: SODIUM CHLORIDE 0.9% FLUSH 10 ML FLUSH IV FLUSH SCH (23:50)
[2017-05-22] VITALS: PULSE 90
[2017-05-22 00:12] VITALS: BP 130/66; PULSE 81; RESP 20; TEMP 99.5; O2SAT 97
[2017-05-22 01:42] LABS: CREATINE KINASE 73 U/L (26-192)
[2017-05-22 04:00] VITALS: PULSE 72
[2017-05-22 04:12] VITALS: BP 133/63; PULSE 92; RESP 18; TEMP 98.2; O2SAT 98
[2017-05-22] MEDS: NITROGLYCERIN 0.4 MG SL 25 TABS/BTL SL PRN (04:29)
[2017-05-22 08:18] VITALS: BP 124/70; PULSE 85; RESP 18; TEMP 98.1; O2SAT 97
[2017-05-22] MEDS: ASPIRIN 81 MG CHEW TAB CHEW SCH (09:01)
[2017-05-22] MEDS: SODIUM CHLORIDE 0.9% FLUSH 10 ML FLUSH IV FLUSH SCH (09:02)
[2017-05-22] MEDS ORDERED: REGADENOSON INJ 0.4 MG/5 ML SYR ONE (09:44)
--- NOTE | 2017-05-22 10:21 | HHI.HP ---
HPI Primary Care Physician Madonna Gabriel MD Chief Complaint Chest pain History of Present Illness This is a 22-year-old female that presents to ED with a clean of chest discomfort that is been intermittent for 2 days. We'll last 1 hour. She states that it worsened yesterday morning. Cannot think Anania brings on the discomfort. She thinks nitrated help a little bit while in the ED. Describes as a pressure. Denies history of CAD. Currently denies chest discomfort. Denies recent travel. Denies fevers or chills. Review of Systems General: Patient denies fevers, chills recent, and recent travel HEENT: Patient denies headache, sore throat, difficulty swallowing. Cardiovascular: Has the chest discomfort as mentioned above. Denies sensation of heart beating rapidly or irregularly. No syncope. Denies diaphoresis. Respiratory: Denies shortness of breath or inspirational chest discomfort. Denies coughing wheezing or hemoptysis. GI: Patient denies nausea, vomiting, diarrhea, abdominal pain, bloody stools. Musculoskeletal: Patient denies joint pain or edema. Denies calf pain or edema. Neurovascular: Patient denies numbness, tingling, weakness in extremities. Denies headache. Endocrine: Denies polyuria and polydipsia. Hematologic: Denies easy bruising. Skin: Denies rash or itching. Past Family Social History Allergies: Coded Allergies: hydromorphone (Unverified Allergy, Unknown, 05/21/17) Past Medical History Hypertension and arthritis. Past Surgical History Hysterectomy secondary to fibroids. Reported Medications Reported Meds & Active Scripts Active Ranitidine (Ranitidine HCl) 150 Mg Tab 150 Mg PO DAILY Hydrochlorothiazide 25 Mg Tab 25 Mg PO DAILY Ibuprofen 800 Mg Tab 800 Mg PO Q12HR PRN Ventolin Hfa 18 GM Inh (Albuterol Sulfate) 90 Mcg/Act Aer 1 Puff INH Q4H PRN Albuterol Neb (Albuterol Sulfate) 2.5 Mg/3 Ml Neb 2.5 Mg NEB Q4HR NEB While awake Active Ordered Medications Current Medications Medications (Trade) Dose Ordered Sig/Russ Route Start Time Stop Time Status Last Admin (Aspirin Chew) 162 mg DAILY CHEW 05/21/17 19:15 05/22/17 09:01 (NS Flush) 2 ml UNSCH PRN IV FLUSH 05/21/17 19:30 (NS Flush) 2 ml BID IV FLUSH 05/21/17 21:00 05/22/17 09:02 (Tylenol) 500 mg Q4H PRN PO 05/21/17 19:30 (Zofran Inj) 4 mg Q6H PRN IV 05/21/17 19:30 (Nitrostat Sl) 0.4 mg Q5M PRN SL 05/21/17 19:30 05/22/17 04:29 Family History Denies family history of CAD. Social History Denies tobacco abuse. Denies alcohol or illicit drugs. Physical Exam Vital Signs Vital Signs Date Time Temp Pulse Resp B/P (MAP) Pulse Ox O2 Delivery O2 Flow Rate FiO2 05/22/17 08:18 98.1 85 18 124/70 (88) 97 05/22/17 07:56 21 05/22/17 04:12 98.2 92 18 133/63 (86) 98 05/22/17 04:00 72 05/22/17 00:12 99.5 81 20 130/66 (87) 97 05/22/17 00:00 90 05/21/17 21:45 90 05/21/17 21:20 98.6 83 20 131/74 (93) 99 05/21/17 20:44 05/21/17 20:38 21 05/21/17 19:08 81 18 138/84 (102) 98 Room Air Manual Cuff/Palpation 05/21/17 18:28 92 133/86 (102) 05/21/17 18:28 94 20 142/88 (106) 05/21/17 18:27 92 20 159/85 (109) 05/21/17 18:11 98 05/21/17 18:11 Nasal Cannula 05/21/17 17:05 97.6 92 20 145/88 (107) 97 Room Air Physical Exam GENERAL: This is a well-nourished, well-developed patient, in no apparent distress. Patient speaks in clear complete sentences. Patient is pleasant. HEENT: Head is atraumatic and normocephalic. Neck is supple without lymphadenopathy and trachea is midline. No JVD or carotid bruits. CARDIOVASCULAR: Regular rate and rhythm without murmurs, gallops, or rubs. RESPIRATORY: Clear to auscultation. Breath sounds equal bilaterally. No wheezes , rales, or rhonchi. Chest wall is nontender. No use of accessory muscles. GASTROINTESTINAL: Abdomen is nontender, nondistended. Abdomen soft. No obvious pulsatile mass or bruit. No CVA tenderness. Strong femoral pulses bilaterally. Normal bowel sounds in all quadrants. MUSCULOSKELETAL: Patient is moving upper and lower extremities freely. No calf tenderness or edema, no Homans sign. Strong pulses in upper and lower extremities. NEUROLOGICAL: Patient is alert and oriented. Cranial nerves 2-12 are grossly intact. No focal deficits and speech is clear. SKIN: No rash and turgor is normal. Laboratory Laboratory Tests Test 05/21/17 17:28 05/21/17 20:30 05/22/17 00:25 05/22/17 07:58 White Blood Count 9.1 Red Blood Count 4.50 Hemoglobin 13.6 Hematocrit 41.0 Mean Corpuscular Volume 91.2 Mean Corpuscular Hemoglobin 30.3 Mean Corpuscular Hemoglobin Concent 33.2 Red Cell Distribution Width 12.1 Platelet Count 230 Mean Platelet Volume 8.0 Neutrophils (%) (Auto) 73.1 Lymphocytes (%) (Auto) 19.2 Monocytes (%) (Auto) 6.5 Eosinophils (%) (Auto) 0.7 Basophils (%) (Auto) 0.5 Neutrophils # (Auto) 6.6 Lymphocytes # (Auto) 1.7 Monocytes # (Auto) 0.6 Eosinophils # (Auto) 0.1 Basophils # (Auto) 0.0 CBC Comment DIFF FINAL Differential Comment Blood Urea Nitrogen 12 Creatinine 0.77 Random Glucose 237 Calcium Level 8.6 Sodium Level 136 Potassium Level 3.3 Chloride Level 100 Carbon Dioxide Level 26.0 Anion Gap 10 Estimat Glomerular Filtration Rate 79 Total Creatine Kinase 95 76 73 Troponin I 0.02 LESS THAN 0.02 LESS THAN 0.02 D-Dimer Quantitative (PE/DVT) 0.44 Result Diagram: 05/21/17 1728 05/21/17 1728 Imaging Last 48 hours Impressions Chest X-Ray 05/21/17 1712 Signed Impressions: Service Date/Time: Sunday, May 21, 2017 17:41 - CONCLUSION: No acute disease. Roberto Olsen Jr., MD Course EKGs have been sinus rhythm without significant ST segment depressions or elevations. Caprini VTE Risk Assessment Caprini VTE Risk Assessment: No/Low Risk (score <= 1) Caprini Risk Assessment Model Point Value = 1 Point Value = 2 Point Value = 3 Point Value = 5 Age 41-60 Minor surgery BMI > 25 kg/m2 Swollen legs Varicose veins or History of unexplained or recurrent spontaneous Oral contraceptives or hormone replacement Sepsis (< 1 month) Serious lung disease, including pneumonia (< 1 month) Abnormal pulmonary function Acute myocardial infarction Congestive heart failure (< 1 month) History of inflammatory bowel disease Medical patient at bed rest Age 61-74 Arthroscopic surgery Major open surgery (> 45 min) Laparoscopic surgery (> 45 min) Malignancy Confined to bed (> 72 hours) Immobilizing plaster cast Central venous access Age >= 75 History of VTE Family history of VTE Factor V Leiden Prothrombin [id number] Lupus anticoagulant Anticardiolipin antibodies Elevated serum homocysteine Heparin-induced thrombocytopenia Other congenital or acquired thrombophilia Stroke (< 1 month) Elective arthroplasty Hip, pelvis, or leg fracture Acute spinal cord injury (< 1 month) Prophylaxis Regimen Total Risk Factor Score Risk Level Prophylaxis Regimen 0-1 Low Early ambulation 2 Moderate Order ONE of the following: *Sequential Compression Device (SCD) *Heparin 5000 units SQ BID 3-4 Higher Order ONE of the following medications: *Heparin 5000 units SQ TID *Enoxaparin/Lovenox 40 mg SQ daily (WT < 150 kg, CrCl > 30 mL/min) *Enoxaparin/Lovenox 30 mg SQ daily (WT < 150 kg, CrCl > 10-29 mL/min) *Enoxaparin/Lovenox 30 mg SQ BID (WT < 150 kg, CrCl > 30 mL/min) AND/OR *Sequential Compression Device (SCD) 5 or more Highest Order ONE of the following medications: *Heparin 5000 units SQ TID (Preferred with Epidurals) *Enoxaparin/Lovenox 40 mg SQ daily (WT < 150 kg, CrCl > 30 mL/min) *Enoxaparin/Lovenox 30 mg SQ daily (WT < 150 kg, CrCl > 10-29 mL/min) *Enoxaparin/Lovenox 30 mg SQ BID (WT < 150 kg, CrCl > 30 mL/min) AND *Sequential Compression Device (SCD) Assessment and Plan Assessment and Plan * Chest pain: Patient had serial cardiac enzymes and EKGs for ruling out purposes. She was seen by Dr. Bran Villafuerte of cardiology in the chest pain center and will undergo a Lexiscan. She'll be discharged home if the Lexiscan is nonischemic with instructions to follow-up with PCP. * Hypertension: Continue current medication. Patient is stable at this time. She is agreeable to this plan. John Reed May 22, 2017 10:21
--- NOTE | 2017-05-22 11:15 | RADRPT ---
EXAM DATE/TIME: 05/22/2017 09:18 [facility] COMPARISON: No previous studies available for comparison. INDICATIONS : Chest pain for 1 day. Angina. DOSE: 26.4 mCi Tc99m Myoview at stress. 8.5 mCi Tc99m Myoview at rest. 0.4 mg Lexiscan STRESS SYMPTOMS: Nausea. EJECTION FRACTION: > 70% MEDICAL HISTORY : Hypertension. Asthma. SURGICAL HISTORY : Inguinal hernia repair. Hysterectomy. ENCOUNTER: Initial ACUITY: 1 day PAIN SCALE: 3/10 LOCATION: Left chest TECHNIQUE: The patient underwent pharmacologic stress with infusion of prescribed dose. Continuous ECG tracing was monitored during stress. Gated SPECT imaging was performed after stress and conventional SPECT i maging was performed at rest. The examination was performed on a SPECT/CT scanner, both attenuation and non-corrected datasets were reviewed. FINDINGS: DISTRIBUTION: The maximum perfused segment at stress is in the anterolateral wall. PERFUSION STUDY: The pattern of perfusion at stress is within normal limits. GATED STUDY: There is intact wall motion and thickening without hypokinetic or dyskinetic segments. CONCLUSION: 1. No reversible perfusion defect is stress induced mild cardial ischemia identified. RISK CATEGORY: Low (<1% Annual Mortality Rate) Sarthak Workman MD on May 22, 2017 at 11:13 Board Certified Radiologist. This report was verified electronically.
[2017-05-22] MEDS ORDERED: HYDROCHLOROTHIAZIDE 25 MG TAB PO SCH (11:30)
[2017-05-22] MEDS ORDERED: FAMOTIDINE 20 MG TAB PO SCH (11:30)
--- NOTE | 2017-05-22 13:10 | HHI.DCPOC ---
Discharge Care Plan Diagnosis: (1) Hypertension (2) Chest pain Goals to Promote Your Health * To prevent worsening of your condition and complications * To maintain your health at the optimal level Directions to Meet Your Goals Take your medications as prescribed Follow your dietary instruction Follow activity as directed Keep your appointments as scheduled Take your immunizations and boosters as scheduled If your symptoms worsen call your PCP, if no PCP go to Urgent Care Center or Emergency Room Smoking is Dangerous to Your Health. Avoid second hand smoke Call the 24-hour hour crisis hotline for domestic abuse at John Reed May 22, 2017 13:10
--- NOTE | 2017-05-22 16:27 | EKG ---
Date Performed: 05/22/2017 Time Performed: 00:54:54 PTAGE: 52 years EKG: Sinus rhythm NORMAL ECG NO PREVIOUS TRACING DOCTOR: Bran Villafuerte Interpretating Date/Time 05/22/2017 16:27:00
--- NOTE | 2017-05-22 16:28 | EKG ---
Date Performed: 05/21/2017 Time Performed: 21:25:23 PTAGE: 52 years EKG: Sinus rhythm NORMAL ECG PREVIOUS TRACING : 05/21/2017 20.34 Since previous tracing, no significant change noted DOCTOR: Bran Villafuerte Interpretating Date/Time 05/22/2017 16:28:15
--- NOTE | 2017-05-22 16:29 | EKG ---
Date Performed: 05/21/2017 Time Performed: 20:34:00 PTAGE: 52 years EKG: Sinus rhythm NORMAL ECG PREVIOUS TRACING : 05/21/2017 17.25 Since previous tracing, no significant change noted DOCTOR: Bran Villafuerte Interpretating Date/Time 05/22/2017 16:28:45
--- NOTE | 2017-05-22 16:32 | EKG ---
Date Performed: 05/21/2017 Time Performed: 17:25:55 PTAGE: 52 years EKG: Sinus rhythm NORMAL ECG PREVIOUS TRACING : 07/26/2011 19.36 Since previous tracing, no significant change noted DOCTOR: Bran Villafuerte Interpretating Date/Time 05/22/2017 16:31:06
--- NOTE | 2017-05-22 16:38 | TR ---
Date Performed: 05/22/2017 Time Performed: 10:04:51 DOCTOR: Bran Villafuerte DRUG LIST: CLINICAL HISTORY: REASON FOR TEST: Angina REASON FOR ENDING: OBSERVATION: CONCLUSION: Lexiscan stress test was performed under standard four minute protocol. Radionuclid e was injected one minute prior to ending the test. No electrocardiographic abormalities were present to suggest ischemia. Nuclear imaging and interpretation are pending. COMMENTS:
[2017-05-28] MEDS ORDERED: HYDR50TA3 PO ×2 (10:06→10:07)
[2017-05-28] MEDS ORDERED: METH125I2 IM (10:08)
== END 2017-05-22 15:36 | disposition home or self-care (01) ==
LOC: NEPC 16:51 → NEDA 19:28 → NEPGCP 20:56
PROVIDERS: ADMIT Internal Medicine Interventional Cardiology; ATTEND Internal Medicine Interventional Cardiology
DX: R07.89 Other chest pain (principal); I10 Essential (primary) hypertension
CPT/HCPCS: 71020; 78452; 80048; 82550; 84484; 85025; 85379; 93005; 93017; 99285; A9502; G0378; J2785

== ENCOUNTER 2017-07-11 12:53 | Emergency (ER) | payer OTHER ==
[~2017-07-11] VITALS: Ht 162.6 cm; Wt 65.0 kg
[~2017-07-11 12:53] MED LIST changes: -HYDR25TA5 PO; +HYDR50TA3 PO
[2017-07-11 12:56] VITALS: BP 161/89; PULSE 75; RESP 12; TEMP 98.6; O2SAT 97
--- NOTE | 2017-07-11 16:00 | RADRPT ---
EXAM DATE/TIME: 07/11/2017 15:05 [facility] COMPARISON: FOOT LEFT COMPLETE ([id number]), January 16, 2017, 12:53. INDICATIONS : Dropped 2 frozen bottles of water on her left foot. MEDICAL HISTORY : None. SURGICAL HISTORY : None. ENCOUNTER: Initial ACUITY: 1 day PAIN SCORE: 10/10 LOCATION: Left foot. FINDINGS: Three view examination of the left foot demonstrates no soft tissue swelling, dislocation, or fractur e. The tarsal bones appear intact. The interphalangeal and metatarsophalangeal joints are intact. The calcaneus is intact. Bony mineralization is normal. CONCLUSION: Unremarkable examination of the left foot. Roberto Olsen Jr., MD on July 11, 2017 at 15:58 Board Certified Radiologist. This report was verified electronically.
--- NOTE | 2017-07-11 16:07 | RADRPT ---
EXAM DATE/TIME: 07/11/2017 15:40 [facility] COMPARISON: No previous studies available for comparison. INDICATIONS : Right leg swelling. MEDICAL HISTORY : Asthma. Hernia. Claustrophobia. SURGICAL HISTORY : Hysterectomy. Fibroid mass removed. Ganglion cyst removed from wrist. ENCOUNTER: Subsequent ACUITY: 1 day PAIN SCORE: 8/10 LOCATION: Right leg. TECHNIQUE: Venous ultrasound of the leg was performed from the inguinal ligament to the proximal calf. Real-va e, color Doppler and spectral tracing, compression and augmentation techniques were used. FINDINGS: There is normal compressibility of the deep venous system from the inguinal region to the proximal ca lf. No echogenic clot is seen in the lumen of the common femoral, femoral, popliteal, and posterior tibial veins. There is a normal response of the venous system to proximal and distal augmentation an d respiration. CONCLUSION: Negative for deep venous thrombosis. Billy Workman MD FACR on July 11, 2017 at 16:05 Board Certified Radiologist. This report was verified electronically.
--- NOTE | 2017-07-11 16:28 | PD ---
HPI Chief Complaint: Medical Clearance Time Seen by Provider: 14:05 Travel History International Travel<30 days: No Contact w/Intl Traveler<30days: No Traveled to known affect area: No History of Present Illness HPI A 52-year-old woman presents to the emergency department with complaining of pain in her left foot which she dropped some ice water on it and also funny feeling in her right leg with pain, "heat in it", and some swelling. Just describes some slight paresthesias in difficult walking. She normally walks with a cane because of severe bilateral knee arthritis. History Past Medical History Narrative Medical Arthritis Asthma : 0 Social History Alcohol Use: No Tobacco Use: No Allergies-Medications (Allergen,Severity, Reaction): Coded Allergies: hydromorphone (Unverified Allergy, Unknown, 07/11/17) Reported Meds & Prescriptions Reported Meds & Active Scripts Active Hydrochlorothiazide 50 Mg Tab 50 Mg PO DAILY Ranitidine (Ranitidine HCl) 150 Mg Tab 150 Mg PO DAILY Ibuprofen 800 Mg Tab 800 Mg PO Q12HR PRN Ventolin Hfa 18 GM Inh (Albuterol Sulfate) 90 Mcg/Act Aer 1 Puff INH Q4H PRN Albuterol Neb (Albuterol Sulfate) 2.5 Mg/3 Ml Neb 2.5 Mg NEB Q4HR NEB While awake Review of Systems Except as stated in HPI: all other systems reviewed are Neg Physical Exam Narrative GENERAL: Well-appearing 52-year-old woman, no acute distress. SKIN: Focused skin assessment warm/dry. ENT: No nasal bleeding or discharge. Mucous membranes pink and moist. NECK: Trachea midline. No JVD. CARDIOVASCULAR: Regular rate and rhythm. No murmur appreciated. RESPIRATORY: No accessory muscle use. Clear to auscultation. Breath sounds equal bilaterally. GASTROINTESTINAL: Abdomen soft, non-tender, nondistended. Hepatic and splenic margins not palpable. MUSCULOSKELETAL: No obvious deformities. No edema. Is a little bit calf tenderness in the right leg. I'll see obvious knee effusions. She is some pain with range of motion the right knee. In the left foot she has a little bit of bruising over the great toe and the base of the great toe. NEUROLOGICAL: Awake and alert. No obvious cranial nerve deficits. Motor grossly within normal limits. Normal speech. Data Data Last Documented VS Vital Signs Date Time Temp Pulse Resp B/P (MAP) Pulse Ox O2 Delivery O2 Flow Rate FiO2 07/11/17 12:56 98.6 75 12 161/89 (113) 97 Orders Orders Us Leg Venous Doppler (07/11/17 ) Foot, Complete ([id number]) (07/11/17 ) [facility] Medical Decision Making Medical Screen Exam Complete: Yes Emergency Medical Condition: Yes Interpretation(s) Right lower 70 ultrasound: Negative Left foot x-ray: Negative Differential Diagnosis Foot injury, Bella cyst, DVT, other other Narrative Course Medical decision-making new para 52-year-old woman with left foot pain after she dropped something on it. X-ray negative. She also has right leg swelling pain and tenderness. This may be radicular pain but it really doesn't seem like it. Her exam is unremarkable for neurologic deficits. She has a lot of symptoms confined to the knee pain when she moves the knee and pain when she walks on the knee and I think her chronic knee arthritis is more to blame. Recommend outpatient follow-up. Diagnosis Primary Impression: Left foot pain Additional Impression: Right leg pain Additional Instructions: Take [id number] medications as needed for pain. Follow-up with her primary doctor for not feeling better in the next 2-4 days. Med/Other Pt SpecificInfo: No Change to Meds Disposition: 01 DISCHARGE HOME Condition: Stable Miquel Grady MD Jul 11, 2017 16:28
== END 2017-07-11 17:11 | disposition home or self-care (01) ==
LOC: NEPD 12:53
DX: M25.572 Pain in left ankle and joints of left foot (principal); J45.909 Unspecified asthma, uncomplicated; M79.89 Other specified soft tissue disorders
CPT/HCPCS: 73630; 93971

== ENCOUNTER 2018-01-04 12:03 | Emergency (ER) | payer SELFPAY ==
[~2018-01-04] VITALS: Ht 167.6 cm; Wt 82.0 kg
[~2018-01-04 12:03] MED LIST changes: +IBUP1TAB7 PO; -IBUP800T23 PO
[2018-01-04 12:30] VITALS: BP 149/83; PULSE 83; RESP 16; TEMP 97.9; O2SAT 98
--- NOTE | 2018-01-04 14:31 | PD ---
HPI Chief Complaint: Injury Time Seen by Provider: 14:20 Travel History International Travel<30 days: No Contact w/Intl Traveler<30days: No Traveled to known affect area: No History of Present Illness HPI This patient complains of left foot pain. She has chronic arthritis and chronic pain in that left foot. She uses a cane to walk around his baseline. She says that she dropped a plastic cabinet on it 2 days ago. Pain is worse than usual. Symptom severity is moderate. It is worse with weightbearing PFSH Past Medical History Asthma: Yes Blood Disorders: No Heart Rhythm Problems: No Cancer: No Cardiovascular Problems: No High Cholesterol: No Chemotherapy: No Chest Pain: No Congestive Heart Failure: No COPD: No Diabetes: No Diminished Hearing: No Gastrointestinal Disorders: Yes (HERNIA) Genitourinary: No Hypertension: Yes Immune Disorder: No Implanted Vascular Access Dvce: No Musculoskeletal: No Neurologic: No Psychiatric: No Reproductive: No Respiratory: Yes (ASTHMA) Radiation Therapy: No Sleep Apnea: No Thyroid Disease: No Tetanus Vaccination: > 5 Years Influenza Vaccination: No ?: Not Menopausal: Yes : 0 Past Surgical History Gynecologic Surgery: Yes (FIBROID MASS REMOVED) Hysterectomy: Yes Other Surgery: Yes (CYST REMOVED FROM R. [facility]) Social History Alcohol Use: No Tobacco Use: No Substance Use: No Allergies-Medications (Allergen,Severity, Reaction): Coded Allergies: hydromorphone (Unverified Allergy, Unknown, 01/04/18) Reported Meds & Prescriptions Reported Meds & Active Scripts Active Hydrochlorothiazide 50 Mg Tab 50 Mg PO DAILY Ranitidine (Ranitidine HCl) 150 Mg Tab 150 Mg PO DAILY Ibuprofen 800 Mg Tab 800 Mg PO Q12HR PRN Ventolin Hfa 18 GM Inh (Albuterol Sulfate) 90 Mcg/Act Aer 1 Puff INH Q4H PRN Albuterol Neb (Albuterol Sulfate) 2.5 Mg/3 Ml Neb 2.5 Mg NEB Q4HR NEB While awake Review of Systems General / Constitutional: No: Fever Eyes: No: Visual changes HENT: No: Headaches Cardiovascular: No: Chest Pain or Discomfort Respiratory: No: Shortness of Breath Gastrointestinal: No: Abdominal Pain Genitourinary: No: Dysuria Musculoskeletal: Positive: Pain Skin: No Rash Neurologic: No: Weakness Psychiatric: No: Depression Endocrine: No: Polydipsia Hematologic/Lymphatic: No: Easy Bruising Physical Exam Narrative SKIN: Focused skin assessment reveals no rash or ulcers. Skin is warm and dry. Palpation shows no induration or nodules. Psych: Normal mood and affect. Normal insight and judgment. Left foot: Patient has a bit of swelling to the foot. There is no erythema or ecchymosis or open wound. She has tenderness to the dorsum of the foot Data Data Last Documented VS Vital Signs Date Time Temp Pulse Resp B/P (MAP) Pulse Ox O2 Delivery O2 Flow Rate FiO2 01/04/18 12:30 97.9 83 16 149/83 (105) 98 Orders Orders Foot, Complete ([id number]) (01/04/18 ) MDM Medical Decision Making Medical Screen Exam Complete: Yes Emergency Medical Condition: Yes Medical Record Reviewed: Yes Differential Diagnosis Foot fracture, contusion, chronic arthritis Narrative Course I have reviewed the patient's electronic medical record. Patient has had multiple x-rays of this left foot in the last year I reviewed her left foot x-rays which show chronic arthritic changes but no fracture Supportive care discussed Diagnosis Primary Impression: Contusion of left foot, initial encounter Additional Instructions: The patient was advised to follow up with their physician and return if they worsen. Med/Other Pt SpecificInfo: Other Disposition: 01 DISCHARGE HOME Condition: Stable Shorty Sung MD Jan 04, 2018 14:31
--- NOTE | 2018-01-04 14:57 | RADRPT ---
EXAM DATE/TIME: 01/04/2018 14:35 [facility] COMPARISON: No previous studies available for comparison. INDICATIONS : Left foot pain. Patient states she dropped something on her foot. MEDICAL HISTORY : None. SURGICAL HISTORY : None. ENCOUNTER: Initial ACUITY: 2 days PAIN SCORE: 10/10 LOCATION: Left foot. FINDINGS: Three view examination of the left foot demonstrates no soft tissue swelling, dislocation, or fractur e. The tarsal bones appear intact. The interphalangeal and metatarsophalangeal joints are intact. The calcaneus is intact. Bony mineralization is normal. CONCLUSION: 1. No acute findings. No significant change from June 2017. Juan Ford MD on January 04, 2018 at 14:53 Board Certified Radiologist. This report was verified electronically.
== END 2018-01-04 16:25 | disposition home or self-care (01) ==
LOC: NEPD 12:03
DX: S90.32XA Contusion of left foot, initial encounter (principal); W20.8XXA Other cause of strike by thrown, projected or falling object, initial encounter
CPT/HCPCS: 73630; 99283

== ENCOUNTER 2018-02-15 20:31 | Emergency (ER) | payer SELFPAY ==
[2018-02-15 20:35] VITALS: BP 174/90; PULSE 80; RESP 19; TEMP 97.6; O2SAT 96
[2018-02-15] MEDS ORDERED: IBUP-232 PO (21:22)
--- NOTE | 2018-02-15 21:22 | PD ---
HPI Chief Complaint: Fall Time Seen by Provider: 21:00 Travel History International Travel<30 days: No Contact w/Intl Traveler<30days: No Traveled to known affect area: No History of Present Illness HPI 53-year-old complains of abdominal pain. She had a fall a few days ago. The fall was mechanical. No head trauma or loss consciousness. The pain has persisted over the past couple days. Associated symptoms include ecchymosis. The pain is worse with palpation. PFSH Past Medical History Asthma: Yes Blood Disorders: No Heart Rhythm Problems: No Cancer: No Cardiovascular Problems: No High Cholesterol: No Chemotherapy: No Chest Pain: No Congestive Heart Failure: No COPD: No Diabetes: No Diminished Hearing: No Gastrointestinal Disorders: Yes (HERNIA) Genitourinary: No Hypertension: Yes Immune Disorder: No Implanted Vascular Access Dvce: No Musculoskeletal: No Neurologic: No Psychiatric: No Reproductive: No Respiratory: Yes (asthma) Radiation Therapy: No Sleep Apnea: No Thyroid Disease: No Tetanus Vaccination: > 5 Years Influenza Vaccination: No ?: Not Menopausal: Yes : 0 Para: 0 Miscarriage: 0 Past Surgical History Gynecologic Surgery: Yes (FIBROID MASS REMOVED) Hysterectomy: Yes (2011) Other Surgery: Yes (CYST REMOVED FROM R. [facility]) Social History Alcohol Use: No Tobacco Use: No Substance Use: No Allergies-Medications (Allergen,Severity, Reaction): Coded Allergies: hydromorphone (Verified Allergy, Intermediate, Nausea/Vomiting, 02/15/18) Reported Meds & Prescriptions Reported Meds & Active Scripts Active Ventolin Hfa 18 GM Inh (Albuterol Sulfate) 90 Mcg/Act Aer 1 Puff INH Q4H PRN Albuterol Neb (Albuterol Sulfate) 2.5 Mg/3 Ml Neb 2.5 Mg NEB Q4HR NEB While awake Review of Systems Except as stated in HPI: all other systems reviewed are Neg General / Constitutional: No: Fever Physical Exam Narrative GENERAL: This 53-year-old female pleasant well-nourished well-developed mild distress secondary pain Vital Signs Date Time Temp Pulse Resp B/P (MAP) Pulse Ox O2 Delivery O2 Flow Rate FiO2 02/15/18 20:35 97.6 80 19 174/90 (118) 96 SKIN: Warm and dry. HEAD: Atraumatic. Normocephalic. EYES: Pupils equal and round. No scleral icterus. No injection or drainage. ENT: No nasal bleeding or discharge. Mucous membranes pink and moist. NECK: Trachea midline. No JVD. CARDIOVASCULAR: Regular rate and rhythm. RESPIRATORY: No accessory muscle use. Clear to auscultation. Breath sounds equal bilaterally. GASTROINTESTINAL: Nonspecific diffuse tenderness present. Abdomen soft. There is minimal ecchymosis in left abdomen wall. MUSCULOSKELETAL: Extremities without clubbing, cyanosis, or edema. No obvious deformities. NEUROLOGICAL: Awake and alert. No obvious cranial nerve deficits. Motor grossly within normal limits. Five out of 5 muscle strength in the arms and legs. Normal speech. PSYCHIATRIC: Appropriate mood and affect; insight and judgment normal. Data Data Last Documented VS Vital Signs Date Time Temp Pulse Resp B/P (MAP) Pulse Ox O2 Delivery O2 Flow Rate FiO2 02/15/18 20:35 97.6 80 19 174/90 (118) 96 MDM Medical Decision Making Medical Screen Exam Complete: Yes Emergency Medical Condition: Yes Medical Record Reviewed: Yes Differential Diagnosis abdominal wall contusion, intraperitoneal hemorrhage, solid organ injury Narrative Course Pt has abdominal wall contusion. Ibuprofen OTC. First dose given here. Diagnosis Primary Impression: Abdominal wall contusion Qualified Codes: S30.1XXA - Contusion of abdominal wall, initial encounter Referrals: Primary Care Physician 2 days Med/Other Pt SpecificInfo: Prescription(s) given Scripts Ibuprofen (Ibuprofen) 600 Mg Tab 600 MG PO Q8HR Y for PAIN, #30 TAB 0 Refills Prov: Sarthak Honeycutt MD 02/15/18 Disposition: 01 DISCHARGE HOME Condition: Stable Sarthak Honeycutt MD February 15, 2018 21:22
[2018-02-15] MEDS ORDERED: KETOROLAC TROMETHAMINE 60 MG/2 ML (IM) VIAL IM ONE (22:00)
[2018-02-15 22:08] VITALS: BP 191/84
== END 2018-02-15 22:39 | disposition home or self-care (01) ==
LOC: NEPD 20:31
DX: S30.1XXA Contusion of abdominal wall, initial encounter (principal); J45.909 Unspecified asthma, uncomplicated; I10 Essential (primary) hypertension; W19.XXXA Unspecified fall, initial encounter
CPT/HCPCS: 96372; 99283; J1885